=== PATIENT | male | born 1985 | race Asian ===

== ENCOUNTER 2021-12-02 07:45 | Day surgery (SDC) | payer BC ==
[2021-12-02] MEDS ORDERED: Ringers Lactate 1,000 ML IV ONE (07:51)
--- NOTE | 2021-12-02 09:13 | ENDO RPT ---
[address], [address] COLONOSCOPY PROCEDURE REPORT EXAM DATE: 12/02/2021 PATIENT NAME: Charles Villanueva MR #: [id number] BIRTHDATE: 1985 ATTENDING: Korey Baumann DR STATUS: outpatient GRAPHIC ART TECHNICIAN: Madelin Mancilla and Shivani Rodriguez RN INDICATIONS: The patient is a 36 yr old Male here for a colonoscopy due to history of colitis with pericolonic abscess PROCEDURE PERFORMED: Colonoscopy with biopsy MEDICATIONS: Per Anesthesia. ESTIMATED BLOOD LOSS: None CONSENT: The patient understands the risks and benefits of the procedure and understands that these risks include, but are not limited to: sedation, allergic reaction, infection, perforation and/or bleeding. Alternative means of evaluation and treatment include, among others: physical exam, x-rays, and/or surgical intervention. The patient elects to proceed with this endoscopic procedure. DESCRIPTION OF PROCEDURE: During intra-op preparation period all mechanical medical equipment was checked for proper function. Hand hygiene and appropriate measures for infection prevention was taken. Procedure, possible complications, alternatives including, but not limited to possibility of bleeding, perforation, tear, infection, sepsis, need for surgery, need for blood transfusion, were explained to the patient. After the risks, benefits and alternatives of the procedure were thoroughly explained, Informed consent was verified, confirmed and timeout was successfully executed by the treatment team. The patient was placed in the left lateral position. A digital rectal exam was performed and revealed internal hemorrhoids. After appropriate level of anesthesia, the scope was passed. The EC-[id number] ([id number]) endoscope was introduced through the anus and advanced to the ileum. The quality of the prep was fair. The instrument was then slowly withdrawn as the colon was fully examined. Scope withdrawal time was 12 minutes. COLON FINDINGS: Multiple small smooth and polypoid shaped semi-pedunculated polyps, ranging between 3-5mm in size, were found in the distal ileum. A polypectomy was performed with cold forceps. The resection was complete, the polyp tissue was completely retrieved and sent to histology. Was found petechiae and in the sigmoid colon. A biopsy of the lesion was performed using cold forceps. Small internal hemorrhoids were found. Single diverticulum was noted at the cecum. No bleeding was noted from the diverticulosis. . The scope was then completely withdrawn from the patient and the procedure terminated. ADVERSE EVENTS: There were no complications. IMPRESSIONS: 1. Multiple small semi-pedunculated polyps, ranging between 3-5mm in size, were found in the distal ileum; polypectomy was performed with cold forceps 2. Petechiae and in the sigmoid colon; biopsy of the lesion was performed using cold forceps 3. Small internal hemorrhoids 4. Mild diverticulosis was noted at the cecum , No Diverticulosis noted on LEFT colon / Sigmoid RECOMMENDATIONS: 1. avoid NSAIDS for 2 weeks 2. await biopsy results 3. fiber rich diet 4. follow-up: office 2 week(s) 5. Monitor for any evidence of rectal bleeding. 6. hemorrhoidal hygiene RECALL: for Colonoscopy, pending biopsy results. Korey Baumann DR eSigned: Korey Baumann DR 12/02/2021 9:13 AM cc: CPT CODES: ICD9 CODES: PATIENT NAME: Charles Villanueva MR#: [id number]
[2021-12-02] MEDS ORDERED: propofoL 200 MG/20 ML VIAL IV ONE (09:16)
[2021-12-02] MEDS ORDERED: LIDOCAINE 1% MPF 5 ML VIAL ONE (09:16)
[2021-12-02 11:45] VITALS: TEMP 97; O2SAT 100
[2021-12-02 11:47] VITALS: BP 105/61
== END 2021-12-02 09:40 | disposition home or self-care (01) ==
LOC: OR 07:45
PROVIDERS: ATTEND Surgery
PROC: 0DBB8ZX Excision of Ileum, Via Natural or Artificial Opening Endoscopic, Diagnostic (ICD-10-PCS; 2021-12-02)
PROC: 0DBN8ZX Excision of Sigmoid Colon, Via Natural or Artificial Opening Endoscopic, Diagnostic (ICD-10-PCS; principal; 2021-12-02 09:15)
DX: K57.20 Diverticulitis of large intestine with perforation and abscess without bleeding (principal); K64.8 Other hemorrhoids; K63.5 Polyp of colon; Z20.822 Contact with and (suspected) exposure to COVID-19
CPT/HCPCS: 88305; J2704; J7120; U0003

== ENCOUNTER 2022-11-27 08:28 | Inpatient (IN) | payer BC ==
[2022-11-26 15:38] LABS: Absolute Lymphocytes (CBC) 2.9 K/uL (0.7-4.9); Lymphocytes % 31.2 % (15.3-44.8); MCV 89.1 fL (80-100); MPV 8.1 fL (7.6-11.3); RBC Red Blood Cell Count 5.17 M/uL (4.33-5.43)
[2022-11-27] MEDS ORDERED: Ringers Lactate 1,000 ML IV ONE ×4 (08:36→17:26)
[2022-11-27] MEDS ORDERED: CEFAZOLIN SODIUM 2 GM/VIAL ONE (08:36)
[2022-11-27] MEDS ORDERED: BUPIVACAINE 0.25% PF 30 ML VIAL ONE ×2 (09:09→09:54)
[2022-11-27] MEDS ORDERED: VECURONIUM 10 MG/VIAL IV ONE ×2 (09:27→09:28)
[2022-11-27] MEDS ORDERED: ROCURONIUM 50 MG/5 ML VIAL IV ONE (09:39)
[2022-11-27] MEDS ORDERED: FENTANYL CITR 100 MCG/2 ML ONE ×3 (09:39→16:21)
[2022-11-27] MEDS ORDERED: dexAMETHasone 10 MG/ML VIAL ONE ×2 (09:39→09:53)
[2022-11-27] MEDS ORDERED: propofoL 200 MG/20 ML VIAL IV ONE (09:39)
[2022-11-27] MEDS ORDERED: KETAMINE HCL 500 MG/5 ML VIAL ONE (09:39)
[2022-11-27] MEDS ORDERED: MIDAZOLAM HCL 2 MG/2 ML INJ ONE (09:39)
[2022-11-27] MEDS ORDERED: LIDOCAINE 2% MPF 5 ML VIAL ONE (09:39)
[2022-11-27] MEDS ORDERED: ONDANSETRON 4 MG/2 ML VIAL ONE (09:39)
[2022-11-27] MEDS ORDERED: KETOROLAC 30 MG/ML INJ ONE (09:39)
[2022-11-27] MEDS ORDERED: EPINEPHRINE/PF 1 MG/ML AMP ONE (09:53)
[2022-11-27] MEDS ORDERED: NS 0.9% VIAL 10 ML ONE ×3 (11:03→13:32)
[2022-11-27] MEDS ORDERED: GLYCOPYRROLATE 0.2 MG/ML SYR ONE ×2 (11:16→16:27)
[2022-11-27] MEDS ORDERED: CEFAZOLIN SODIUM 1 GM/VIAL ONE (15:10)
[2022-11-27] MEDS ORDERED: NS 0.9% VIAL 20 ML ONE (15:10)
[2022-11-27] MEDS ORDERED: NEOSTIGMINE 1 MG/ML -5 ML ONE (16:27)
--- NOTE | 2022-11-27 16:31 | P.OP ---
[employer] Sales Representative: Caitlin Coulter Preoperative diagnosis: History of Sigmoid Diverticuliits with Abscesses Postoperative diagnosis: History of Sigmoid Diverticuliits with Abscesses Primary procedure: Laparoscopic Sigmoid Colectomy with primary colorectal anastamosis Anesthesia: GETA + Local Estimated blood loss: 250cc Specimen: Sigmoid Colon, EEA stapler donuts (both intact) Findings: Severe adhesions, wood like texture to Sigmoid colon Complications: None Transferred to: ICU Condition: Good
[2022-11-27] MEDS ORDERED: HYDROMORPHONE HCL 1 MG/ML INJ IV PRN (16:55)
[2022-11-27] MEDS ORDERED: ONDANSETRON 4 MG/2 ML VIAL IV PRN (16:55)
[2022-11-27] MEDS ORDERED: NALOXONE 0.4 MG/ML VIAL IV PRN (16:55)
[2022-11-27] MEDS ORDERED: HYDROMORPHONE HCL 1 MG/ML INJ ONE (17:16)
--- NOTE | 2022-11-27 17:21 | RAD REPORT ---
EXAM DESCRIPTION: RAD - Abdomen 1 View (KUB) - 11/27/2022 5:17 pm CLINICAL HISTORY: Placement of NGT/OGT. Post Insertion. Pain COMPARISON: No comparisons FINDINGS: Enteric tube tip is in the stomach.
--- OUTSIDE RECORDS SUMMARY | 2022-11-27 17:45 | XMS REPORT | Continuity of Care Document ---
:1985 Author Organization [facility] t Address [address] [place] [address] Care Team Providers Name Role Phone Ivon Jin Primary Care Physician Unavailable OTTO CONTRERAS I. Attending Clinician Unavailable BRAYDON LIGHT Attending Clinician Unavailable Braydon Light MD Attending Clinician Richard Maldonado MD Attending Clinician Abilio Dumont MD Attending Clinician [phone] Muriel Attending Clinician Unavailable EVITA GONZALEZ Attending Clinician Unavailable NADEGE HARRINGTON Attending Clinician Unavailable JESSICA VALLADARES Attending Clinician Unavailable Baldev Fraser MD Attending Clinician Jessica Valladares MD Attending Clinician JULIO C BENNETT Attending Clinician Unavailable Trudi Ramires MD Attending Clinician Mali Gregorio MD Attending Clinician AMBREEN_FARHANA Attending Clinician Unavailable DARCIE HENSLEY Attending Clinician Unavailable EDDIE NOYOLA-Abraham Attending Clinician Unavailable IVON JIN Attending Clinician Unavailable MABLE WILLARD Attending Clinician Unavailable CAROLYNN VALDEZ Attending Clinician Unavailable OTTO CONTRERAS I. Admitting Clinician Unavailable BRAYDON LIGHT Admitting Clinician Unavailable Muriel Admitting Clinician Unavailable EVITA GONZALEZ Admitting Clinician Unavailable BALDEV FRASER Admitting Clinician Unavailable JULIO C BENNETT Admitting Clinician Unavailable MATTHEW Admitting Clinician Unavailable Payers Payer Name Policy Type Policy Number Effective Date Expiration Date S kojo BCBS ADV HMO [id number] 2020 EXCHANGE 00:00:00 [id number] 2016 2017 ADVANTAGE (HMO) 00:00:00 00:00:00 Problems Condition Condition Condition Status Onset Resolution Last Treating Co mments Source Name Details Category Date Date Treatment Clinician Date Diverticul Diverticul Disease Active 2021-[address] [facility] 00 [facility] Abdominal Abdominal Disease Active 2021-[address] [facility] [address] pain pain 1-16 [facility] 00 [facility] Phlegmon Phlegmon Disease [facility] 00 [facility] Phimosis Phimosis Disease Active 2019-10 [facility] Allergies, Adverse Reactions, Alerts Allergy Allergy Status Severity Reaction(s) Onset Inactive Treating Comm ents Source Name Type Date Date Clinician NO KNOWN Allergy Active [facility] Family History Family Member Diagnosis Comments Start Date Stop Date Source Family member Inflammatory bowel [facility] Social History Social Habit Start Date Stop Date Quantity Comments Source History [facility] Transport [facility] Center Exposure to 2022-11-04 2022-11-14 Not sure [facility] SARS-CoV-2 (event) 00:00:00 12:43:00 Medica l Center Alcohol intake 2022-11-14 2022-11-14 [facility] Center History SDOH 2022-09-10 2022-09-[address] [facility] Transport Med 00:00:00 00:00:[address] [facility] 2022-09-10 2022-09-[address] [facility] Housing Unable to 00:00:00 00:00:00 Medical Center Pay History [facility] 2022-09-10 2022-09-[address] [facility] Housing Places 00:00:00 00:00:00 Medical Ce nter Lived History [facility] 2022-09-10 2022-09-[address] [facility] Housing Homeless 00:00:00 00:00:00 Medical Center Last Year Cigarettes smoked 2020-07-25 2020-07-[address] [facility] current (pack per 00:00:00 00:00:00 Medical Center day) - Reported Cigarette 2020-07-25 2020-07-[address] [facility] pack-years 00:00:00 00:00:00 [facility] Tobacco use and 2020-07-25 2020-07-[address] [facility] exposure 00:00:00 00:00:00 [facility] Sex Assigned At [birth year] [facility] [address] [facility] 00:00:00 00:00:00 [facility] Smoking Status Start Date Stop Date Source Current every day smoker 2020-07-25 00:00:00 [facility] Medications Ordered Filled Start Stop Current Ordering Indication Dosage Frequency Signature Comments Components Source Medication Medication Date Date Medication? Clinician (SIG) Name Name cholecalcif Yes [id number] Q7D Take [facility], 1-20 50,000 [facility] vitamin D3, 15:10: Units by [place] (VITAMIN D3 14 mouth once Ce nter ORAL) a week . citalopram Yes 40mg QD Take [address] (CELEXA) 20 1-20 by mouth Luke s MG tablet 15:10: daily . Medic al 14 Center lipase/prot Yes Q.25D Take by [facility] ease/amylas 1-20 mouth 4 [facility] e (ZENPEP 15:10: (four) Medica l ORAL) 14 times Center daily . pantoprazol Yes 40mg QD Take [address] [facility] 1-20 by mouth [facility] (PROTONIX) 15:10: daily. Medic al 40 MG 14 Center tablet famotidine Yes 40mg QD Take [address] (PEPCID) 40 1-20 by mouth Luke s MG tablet 15:10: daily. Medica l 14 Center metroNIDAZO 2021-10- No 500mg [id number] Take [address] [facility] (FLAGYL) 1-19 11-18 [id number] mg by [facility] 500 MG 14:50: 00:00 3D mouth 3 Medical tablet 02 :00 (three) Center times daily. levoFLOXaci 2021-10 No 500mg QD Take [address] n -19 11-18 mg by [facility] (LEVAQUIN) 14:50: 00:00 mouth Medic al 500 MG 02 :00 daily. Center tablet metroNIDAZO 2021-10 No 500mg Q.[id number] Take [address] [facility] (FLAGYL) - 11-18 [id number] mg by [facility] 500 MG 14:50: 00:00 3D mouth 3 Medical tablet 02 :00 (three) Center times daily. levoFLOXaci 2021-10 No 500mg QD Take [address] n -19 11-18 mg by [facility] (LEVAQUIN) 14:50: 00:00 mouth Medic al 500 MG 02 :00 daily. Center tablet metroNIDAZO 2021-10 No 500mg Q.[id number] Take [address] [facility] (FLAGYL) - 11-18 [id number] mg by [facility] 500 MG 14:50: 00:00 3D mouth 3 Medical tablet 02 :00 (three) Center times daily. levoFLOXaci 2021-10 No 500mg QD Take [address] n 1-19 11-18 mg by [facility] (LEVAQUIN) 14:50: 00:00 mouth Medic al 500 MG 02 :00 daily. Center tablet metroNIDAZO 2021-10 No 500mg Q.[id number] Take [address] [facility] (FLAGYL) 1-19 11-18 [id number] mg by [facility] 500 MG 14:50: 00:00 3D mouth 3 Medical tablet 02 :00 (three) Center times daily. levoFLOXaci 2021-10- No 500mg QD Take [address] n 1-19 11-18 mg by [facility] (LEVAQUIN) 14:50: 00:00 mouth Medic al 500 MG 02 :00 daily. Center tablet cholecalcif 2021-10 Yes [id number] Q7D Take [facility], 1-18 50,000 [facility] vitamin D3, 14:50: Units by Me dical (VITAMIN D3 58 mouth once Ce nter ORAL) a week . citalopram 2021-10 Yes 40mg QD Take [address] (CELEXA) 20 1-18 by mouth Luke s MG tablet 14:50: daily . Medic al 58 Center lipase/prot 2021-10 Yes Take by [facility] ease/amylas 1-18 mouth. [facility] e (ZENPEP 14:50: Medical ORAL) 58 Center pantoprazol 2021-10 Yes 40mg QD Take [address] [facility] 1-18 by mouth [facility] (PROTONIX) 14:50: daily. Medic al 40 MG 58 Center tablet famotidine 2021-10 Yes 40mg QD Take [address] (PEPCID) 40 1-18 by mouth Luke s MG tablet 14:50: daily. Medica l 58 [facility] cholecalcif 2021-10 Yes [id number] Q7D Take [facility], 1-18 50,000 [facility] vitamin D3, 14:50: Units by [place] (VITAMIN D3 58 mouth once Ce nter ORAL) a week . citalopram 2021-10 Yes 40mg QD Take [address] (CELEXA) 20 1-18 by mouth Luke s MG tablet 14:50: daily . Medic al 58 Center lipase/prot 2021-10 Yes Take by [facility] ease/amylas 1-18 mouth. [facility] e (ZENPEP 14:50: Medical ORAL) 58 Center pantoprazol 2021-10 Yes 40mg QD Take [address] [facility] 1-18 by mouth [facility] (PROTONIX) 14:50: daily. Medic al 40 MG 58 Center tablet famotidine 2021-10 Yes 40mg QD Take [address] (PEPCID) 40 1-18 by mouth Luke s MG tablet 14:50: daily. Medica l 58 Center cholecalcif 2021-10 Yes [id number] Q7D Take [facility], 1-18 50,000 [facility] vitamin D3, 14:50: Units by [place] (VITAMIN D3 58 mouth once Ce nter ORAL) a week . citalopram 2021-10 Yes 40mg QD Take [address] (CELEXA) 20 11-12 by mouth Luke s MG tablet 14:50: daily . Medic al 58 Center lipase/prot 2021-10 Yes Take by [facility] ease/amylas 18 mouth. [facility] e (ZENPEP 14:50: Medical ORAL) 58 Center pantoprazol 2021-10 Yes 40mg QD Take [address] [facility] 18 by mouth [facility] (PROTONIX) 14:50: daily. Medic al 40 MG 58 Center tablet famotidine 2021-10 Yes 40mg QD Take [address] (PEPCID) 40 11-12 by mouth Luke s MG tablet 14:50: daily. Medica l 58 Center metroNIDAZO 2021-10- No 500mg Take [address] [facility] (FLAGYL) 11-12 tablet [facility] 500 MG 00:00: 23:59 (500 mg Medical tablet 00 :00 total) by Center mouth every 8 (eight) hours for 14 days. cefdinir 2021-10- No 300mg Take 1 [facility] (OMNICEF) 11-12 capsule [facility] 300 MG 00:00: 23:59 (300 mg Medical capsule 00 :00 total) by Center mouth every 12 (twelve) hours for 14 days. metroNIDAZO 2021-10- No 500mg Take [address] [facility] (FLAGYL) 11-12 tablet [facility] 500 MG 00:00: 23:59 (500 mg Medical tablet 00 :00 total) by Center mouth every 8 (eight) hours for 14 days. cefdinir 2021-10- No 300mg Take 1 [facility] (OMNICEF) 11-12 capsule [facility] 300 MG 00:00: 23:59 (300 mg Medical capsule 00 :00 total) by Center mouth every 12 (twelve) hours for 14 days. metroNIDAZO 2021-10- No 500mg Take [address] [facility] (FLAGYL) 11-12 tablet [facility] 500 MG 00:00: 23:59 (500 mg Medical tablet 00 :00 total) by Center mouth every 8 (eight) hours for 14 days. cefdinir 2021-10- No 300mg Take 1 [facility] (OMNICEF) 11-12 capsule [facility] 300 MG 00:00: 23:59 (300 mg Medical capsule 00 :00 total) by Center mouth every 12 (twelve) hours for 14 days. cefdinir 2021-10- No 300mg Take 1 [facility] (OMNICEF) 11-12 capsule [facility] 300 MG 00:00: 23:59 (300 mg Medical capsule 00 :00 total) by Center mouth every 12 (twelve) hours for 14 days. metroNIDAZO 2021-10- No 500mg Take [address] [facility] (FLAGYL) 11-12 tablet [facility] 500 MG 00:00: 23:59 (500 mg Medical tablet 00 :00 total) by Center mouth every 8 (eight) hours for 14 days. acetaminoph 2021-10- No 1{tbl} Take [address] en-codeine 11-12 tablet by [place] (TYLENOL 00:00: 23:59 mouth Medical #3) 300-30 00 :00 every 12 Cente r mg per (twelve) tablet hours as needed for Pain for up to 10 days. Max Daily Amount: 2 tablets acetaminoph 2021-10- No 1{tbl} Take [address] en-codeine -09-22 tablet by [place] (TYLENOL 00:00: 23:59 mouth Medical #3) 300-30 00 :00 every 12 Cente r mg per (twelve) tablet hours as needed for Pain for up to 10 days. Max Daily Amount: 2 tablets acetaminoph 2021-10- No 1{tbl} Take [address] en-codeine -18 - tablet by [place] (TYLENOL 00:00: 23:59 mouth Medical #3) 300-30 00 :00 every 12 Cente r mg per (twelve) tablet hours as needed for Pain for up to 10 days. Max Daily Amount: 2 tablets acetaminoph 2021-10- No 1{tbl} Take [address] en-codeine -18 - tablet by [place] (TYLENOL 00:00: 23:59 mouth Medical #3) 300-30 00 :00 every 12 Cente r mg per (twelve) tablet hours as needed for Pain for up to 10 days. Max Daily Amount: 2 tablets lipase/prot 2021-10 Yes Take by [facility] ease/amylas 0-28 mouth. [facility] e (ZENPEP 16:19: Medical ORAL) 04 [facility] pantoprazol 2021-10 Yes 40mg QD Take [address] [facility] 0-28 by mouth [facility] (PROTONIX) 16:19: daily. Medic al 40 MG 04 Center tablet famotidine 2021-10 Yes 40mg QD Take [address] (PEPCID) 40 0-28 by mouth Luke s MG tablet 16:19: daily. Medica l 04 Center lipase/prot 2021-10 Yes Take by [facility] ease/amylas 0-28 mouth. [facility] e (ZENPEP 16:19: Medical ORAL) 04 [facility] pantoprazol 2021-10 Yes 40mg QD Take [address] [facility] 0-28 by mouth [facility] (PROTONIX) 16:19: daily. Medic al 40 MG 04 Center tablet famotidine 2021-10 Yes 40mg QD Take [address] (PEPCID) 40 0-28 by mouth Luke s MG tablet 16:19: daily. Medica l 04 Center lipase/prot 2021-10 Yes Take by [facility] ease/amylas 0-28 mouth. [facility] e (ZENPEP 16:19: Medical ORAL) 04 [facility] pantoprazol 2021-10 Yes 40mg QD Take [address] [facility] 0-28 by mouth [facility] (PROTONIX) 16:19: daily. Medic al 40 MG 04 Center tablet famotidine 2021-10 Yes 40mg QD Take [address] (PEPCID) 40 0-28 by mouth Luke s MG tablet 16:19: daily. Medica l 04 Center lipase/prot 2021-10 Yes Take by [facility] ease/amylas 0-28 mouth. [facility] e (ZENPEP 16:19: Medical ORAL) 04 Center pantoprazol 2021-10 Yes 40mg QD Take [address] [facility] 0-28 by mouth [facility] (PROTONIX) 16:19: daily. Medic al 40 MG 04 Center tablet famotidine 2022-1 Yes 40mg QD Take [address] (PEPCID) 40 0-28 by mouth Luke s MG tablet 16:19: daily. Medica l 04 [facility] cholecalcif 2021-10 Yes [id number] Q7D Take [facility], 0-27 50,000 [facility] vitamin D3, 16:22: Units by Me dical (VITAMIN D3 59 mouth once Ce nter ORAL) a week . citalopram 2021-10 Yes 40mg QD Take [address] (CELEXA) 20 0-27 by mouth Luke s MG tablet 16:22: daily . [facility] al 59 [facility] cholecalcif 2021-10 Yes [id number] Q7D Take [facility], 0-27 50,000 [facility] vitamin D3, 16:22: Units by Me dical (VITAMIN D3 59 mouth once Ce nter ORAL) a week . citalopram 2021-10 Yes 40mg QD Take [address] (CELEXA) 20 0-27 by mouth Luke s MG tablet 16:22: daily . [facility] al 59 [facility] cholecalcif 2021-10 Yes [id number] Q7D Take [facility], 0-27 50,000 [facility] vitamin D3, 16:22: Units by Me dical (VITAMIN D3 59 mouth once Ce nter ORAL) a week . citalopram 2021-10 Yes 40mg QD Take [address] (CELEXA) 20 0-27 by mouth Luke s MG tablet 16:22: daily . [facility] al 59 [facility] cholecalcif 2021-10 Yes [id number] Q7D Take [facility], 0-27 50,000 [facility] vitamin D3, 16:22: Units by Me dical (VITAMIN D3 59 mouth once Ce nter ORAL) a week . citalopram 2021-10 Yes 40mg QD Take [address] (CELEXA) 20 0-27 by mouth Luke s MG tablet 16:22: daily . [facility] al 59 [facility] topiramate 2021-10- No 15mg QD Take [address] (TOPAMAX) 0-27 10-27 by mouth [facility] 15 MG 11:32: 00:00 daily . Medical capsule 37 :00 [facility] topiramate 2021-10- No 15mg QD Take [address] (TOPAMAX) 0-27 10-27 by mouth [facility] 15 MG 11:32: 00:00 daily . Medical capsule 37 :00 [facility] topiramate 2021-10- No 15mg QD Take [address] (TOPAMAX) 0-27 10-27 by mouth [facility] 15 MG 11:32: 00:00 daily . Medical capsule 37 :00 [facility] topiramate 2021-10- No 15mg QD Take [address] (TOPAMAX) 0-27 10-27 by mouth [facility] 15 MG 11:32: 00:00 daily . Medical capsule 37 :00 [facility] topiramate 2021-10- No 15mg QD Take [address] (TOPAMAX) 0-27 10-27 by mouth [facility] 15 MG 11:32: 00:00 daily . Medical capsule 37 :00 [facility] topiramate 2021-10- No 15mg QD Take [address] (TOPAMAX) 0-27 10-27 by mouth [facility] 15 MG 11:32: 00:00 daily . Medical capsule 37 :00 [facility] topiramate 2021-10- No 15mg QD Take [address] (TOPAMAX) 0-27 10-27 by mouth [facility] 15 MG 11:32: 00:00 daily . Medical capsule 37 :00 [facility] topiramate 2021-10- No 15mg QD Take [address] (TOPAMAX) 0-27 10-27 by mouth [facility] 15 MG 11:32: 00:00 daily . Medical capsule 37 :00 [facility] Vital Signs Vital Name Observation Time Observation Value Comments Source HEIGHT 2020-07-20 00:00:00 182.9 cm WEIGHT 2020-07-20 00:00:00 123.787 kg HEIGHT 2022-11-14 12:25:00 182.9 cm WEIGHT 2022-11-14 12:25:00 82.509 kg HEIGHT 2022-11-13 08:55:00 182.9 cm WEIGHT 2022-11-13 08:55:00 85.73 kg HEIGHT 2022-11-14 12:25:00 182.9 cm WEIGHT 2022-11-14 12:25:00 82.509 kg HEIGHT 2022-11-13 08:55:00 182.9 cm WEIGHT 2022-11-13 08:55:00 85.73 kg WEIGHT 2022-09-12 06:47:00 85.775 kg WEIGHT 2022-09-09 23:26:00 86.773 kg HEIGHT 2022-09-09 23:26:00 182.9 cm WEIGHT 2022-09-12 06:47:00 85.775 kg WEIGHT 2022-09-09 23:26:00 86.773 kg HEIGHT 2022-09-09 23:26:00 182.9 cm WEIGHT 2022-09-12 06:47:00 85.775 kg WEIGHT 2022-09-09 23:26:00 86.773 kg HEIGHT 2022-09-09 23:26:00 182.9 cm HEIGHT 2022-08-21 11:20:00 182.9 cm WEIGHT 2022-08-21 11:20:00 83.6 kg HEIGHT 2022-08-20 13:11:00 182.9 cm WEIGHT 2022-08-20 13:11:00 86.183 kg HEIGHT 2022-08-21 11:20:00 182.9 cm WEIGHT 2022-08-21 11:20:00 83.6 kg HEIGHT 2022-08-20 13:11:00 182.9 cm WEIGHT 2022-08-20 13:11:00 86.183 kg HEIGHT 2022-08-21 11:20:00 182.9 cm WEIGHT 2022-08-21 11:20:00 83.6 kg HEIGHT 2022-08-20 13:11:00 182.9 cm WEIGHT 2022-08-20 13:11:00 86.183 kg HEIGHT 2020-07-20 00:00:00 182.9 cm WEIGHT 2020-07-20 00:00:00 123.787 kg Systolic blood 2022-11-14 15:00:00 129 mm[Hg] [facility] Diastolic blood 2022-11-14 15:00:00 86 mm[Hg] [facility] Heart rate 2022-11-14 15:00:00 52 /min [facility] Respiratory rate 2022-11-14 15:00:00 23 /min [facility] Oxygen saturation in 2022-11-14 15:00:00 100 /min [facility] Arterial blood by Medical Ce nter Pulse oximetry Body temperature 2022-11-14 13:37:00 36.17 Judie [facility] Body height 2022-11-14 12:25:00 182.9 cm [facility] Body weight 2022-11-14 12:25:00 82.509 kg [facility] BMI 2022-11-14 12:25:00 24.67 kg/m2 [facility] Systolic blood 2022-09-12 11:48:00 121 mm[Hg] [facility] Diastolic blood 2022-09-12 11:48:00 73 mm[Hg] [facility] Heart rate 2022-09-12 11:48:00 55 /min [facility] Body temperature 2022-09-12 11:48:00 36.5 Judie [facility] Respiratory rate 2022-09-12 11:48:00 19 /min [facility] Oxygen saturation in 2022-09-12 11:48:00 98 /min [facility] Arterial blood by Medical Ce nter Pulse oximetry Body weight 2022-09-12 06:47:00 85.775 kg [facility] BMI 2022-09-12 06:47:00 25.65 kg/m2 [facility] Body height 2022-09-09 23:26:00 182.9 cm [facility] Systolic blood 2022-08-21 16:02:00 140 mm[Hg] [facility] Diastolic blood 2022-08-21 16:02:00 90 mm[Hg] [facility] Heart rate 2022-08-21 16:02:00 52 /min [facility] Body temperature 2022-08-21 16:02:00 36.56 Judie [facility] Respiratory rate 2022-08-21 16:02:00 18 /min [facility] Oxygen saturation in 2022-08-21 16:02:00 99 /min [facility] Arterial blood by Medical Ce nter Pulse oximetry Body height 2022-08-21 11:20:00 182.9 cm [facility] Body weight 2022-08-21 11:20:00 83.6 kg [facility] BMI 2022-08-21 11:20:00 25.00 kg/m2 [facility] Procedures Procedure Date / Time Performed Performing Clinician [facility] e REPORT OF PROCEDURE - 2022-11-14 13:37:54 Braydon Light [facility] ENDOSCOPY [facility] COLONOSCOPY 2022-11-14 13:15:00 Braydon Light [facility] MAGNESIUM 2022-09-12 05:16:00 [facility] CBC W/PLT COUNT & AUTO 2022-09-12 05:16:00 [facility] COMPREHENSIVE METABOLIC 2022-09-12 05:16:00 Jsesica Valladares [facility] CBC W/PLT COUNT & AUTO 2022-09-12 05:16:00 [facility] TSH/FREE T4 IF INDICATED 2022-09-11 13:54:00 Jessica Valladares [facility] T4, FREE 2022-09-11 13:54:[address] [facility] ECG 12-LEAD 2022-09-11 11:09:10 Unknown, [facility] ECG 12-LEAD 2022-09-11 11:09:10 Unknown, [facility] ECG 12-LEAD 2022-09-11 11:08:31 Yen Patricia [facility] ECG 12-LEAD 2022-09-11 11:08:31 Unknown, [facility] ECG 12-LEAD 2022-09-11 11:08:31 Unknown, [facility] MAGNESIUM 2022-09-11 04:56:00 [facility] CBC W/PLT COUNT & AUTO 2022-09-11 04:56:00 [facility] COMPREHENSIVE METABOLIC 2022-09-11 04:56:00 Jessica Valladares [facility] PROTHROMBIN TIME/INR 2022-09-11 04:56:00 Jacquelyn, Yawillie Govea [facility] CBC W/PLT COUNT & AUTO 2022-09-11 04:56:00 [facility] POCT-GLUCOSE METER 2022-09-11 01:15:00 [facility] 2022-09-11 00:43[facility]00 [facility]ABOLIC PANEL 2022-09-10 05:06:00 [facility] MAGNESIUM 2022-09-10 05:06:00 [facility] CBC W/PLT COUNT & AUTO 2022-09-10 05:06:00 [facility] HEPATIC FUNCTION PANEL 2022-09-10 05:06:00 [facility] CBC W/PLT COUNT & AUTO 2022-09-10 05:06:00 [facility] REPORT OF PROCEDURE - 2022-08-21 15:13:40 Braydon Light [facility] ENDOSCOPY [facility] COLONOSCOPY 2022-08-21 14:51:00 Braydon Light [facility] Plan of Care Planned Activity Planned Date Details Comments Source Future Scheduled 2022-10-[address] [facility] Test 00:00:00 (12+) [code = [facility] DEPRESSION SCREENING (12+)] Future Scheduled 2022-06-26 INFLUENZA VACCINE (#1) [facility] 00:00:00 [code = INFLUENZA Medical Ce nter VACCINE (#1)] Future Scheduled 2022-06-26 INFLUENZA VACCINE (#1) [facility] Test 00:00:00 [code = INFLUENZA Medical Ce nter VACCINE (#1)] Future Scheduled 2022-06-26 INFLUENZA VACCINE (#1) [facility] Test 00:00:00 [code = INFLUENZA Medical Ce nter VACCINE (#1)] Future Scheduled 2022-06-26 INFLUENZA VACCINE (#1) [facility] Test 00:00:00 [code = INFLUENZA Medical Ce nter VACCINE (#1)] Future Scheduled 2022-06-26 INFLUENZA VACCINE (#1) [facility] Test 00:00:00 [code = INFLUENZA Medical Ce nter VACCINE (#1)] Future Scheduled 2022-06-26 INFLUENZA VACCINE (#1) [facility] 00:00:00 [code = INFLUENZA Medical Ce nter VACCINE (#1)] Future Scheduled 2022-06-26 INFLUENZA VACCINE (#1) [facility] 00:00:00 [code = INFLUENZA Medical Ce nter VACCINE (#1)] Future Scheduled 2022-06-26 INFLUENZA VACCINE (#1) [facility] 00:00:00 [code = INFLUENZA Medical Ce nter VACCINE (#1)] Future Scheduled 2021-10-[address] [facility] Test 00:00:00 (12+) [code = Medical Center DEPRESSION SCREENING (12+)] Future Scheduled 2021-10-[address] [facility] Test 00:00:00 (12+) [code = Medical Center DEPRESSION SCREENING (12+)] Future Scheduled 2021-10-[address] [facility] Test 00:00:00 (12+) [code = Medical Center DEPRESSION SCREENING (12+)] Future Scheduled 2021-10-[address] [facility] Test 00:00:00 (12+) [code = Medical Center DEPRESSION SCREENING (12+)] Future Scheduled 2021-10-[address] [facility] Test 00:00:00 (12+) [code = Medical Center DEPRESSION SCREENING (12+)] Future Scheduled 2021-10-[address] [facility] Test 00:00:00 (12+) [code = Medical Center DEPRESSION SCREENING (12+)] Future Scheduled 2021-10-[address] [facility] Test 00:00:00 (12+) [code = Medical Center DEPRESSION SCREENING (12+)] Future Scheduled 2021-07-[address] [facility] Test 00:00:00 [facility]ing [facility] Medical Cente r Screening (12+) [code = Tobacco Cessation Counseling and Screening (12+)] Future Scheduled 2021-07-[address] [facility] Test 00:00:00 Counseling and Medical Cente r Screening (12+) [code = Tobacco Cessation Counseling and Screening (12+)] Future Scheduled 2021-07-[address] [facility] Test 00:00:00 Counseling and Medical Cente r Screening (12+) [code = Tobacco Cessation Counseling and Screening (12+)] Future Scheduled 2021-07-[address] [facility] Test 00:00:00 Counseling and Medical Cente r Screening (12+) [code = Tobacco Cessation Counseling and Screening (12+)] Future Scheduled 2021-04-17 COVID-19 VACCINE (2 - [facility]00 Pfizer series) [code = Medic al Center COVID-19 VACCINE (2 - Pfizer series)] Future Scheduled 2021-04-17 COVID-19 VACCINE (2 - [facility] 00:00:00 Pfizer series) [code = Medic al Center COVID-19 VACCINE (2 - Pfizer series)] Future Scheduled 2021-04-17 COVID-19 VACCINE (2 - [facility] 00:00:00 Pfizer series) [code = Medic al Center COVID-19 VACCINE (2 - Pfizer series)] Future Scheduled 2021-04-17 COVID-19 VACCINE (2 - [facility] 00:00:00 Pfizer series) [code = Medic al Center COVID-19 VACCINE (2 - Pfizer series)] Future Scheduled 2021-04-17 COVID-19 VACCINE (2 - [facility] 00:00:00 Pfizer series) [code = Medic al Center COVID-19 VACCINE (2 - Pfizer series)] Future Scheduled 2021-04-17 COVID-19 VACCINE (2 - [facility] 00:00:00 Pfizer series) [code = Medic al Center COVID-19 VACCINE (2 - Pfizer series)] Future Scheduled 2021-04-17 COVID-19 VACCINE (2 - [facility] 00:00:00 Pfizer series) [code = Medic al Center COVID-19 VACCINE (2 - Pfizer series)] Future Scheduled 2021-04-17 COVID-19 VACCINE (2 - [facility] Pf[facility] series) [code [facility] COVID-[facility] VACCINE (2 - Pfizer series)] Future Scheduled [address] [facility]:00 (procedure) [code = [facility] [id number]] Future Scheduled [address] [facility] 00:00:00 (procedure) [code = [facility] [id number]] Future Scheduled [address] [facility] 00:00:00 (procedure) [code = [facility] [id number]] Future Scheduled [address] [facility] 00:00:00 (procedure) [code = [facility] [id number]] Future Scheduled [address] [facility] 00:00:00 (procedure) [code = [facility] [id number]] Future Scheduled [address] [facility] 00:00:00 (procedure) [code = [facility] [id number]] Future Scheduled [address] [facility] 00:00:00 (procedure) [code = [facility] [id number]] Future Scheduled [address] [facility] 00:00:00 (procedure) [code = [facility] [id number]] Future Scheduled 2003 DTAP/TDAP/TD VACCINES [facility] 00:00:00 (1 - Tdap) [code = Medical C enter DTAP/TDAP/TD VACCINES (1 - Tdap)] Future Scheduled 2003 DTAP/TDAP/TD VACCINES [facility] 00:00:00 (1 - Tdap) [code = Medical C enter DTAP/TDAP/TD VACCINES (1 - Tdap)] Future Scheduled 2003 DTAP/TDAP/TD VACCINES [facility] 00:00:00 (1 - Tdap) [code = Medical C enter DTAP/TDAP/TD VACCINES (1 - Tdap)] Future Scheduled 2003 DTAP/TDAP/TD VACCINES [facility] 00:00:00 (1 - Tdap) [code = Medical C enter DTAP/TDAP/TD VACCINES (1 - Tdap)] Future Scheduled 2003 DTAP/TDAP/TD VACCINES [facility] 00:00:00 (1 - Tdap) [code = Medical C enter DTAP/TDAP/TD VACCINES (1 - Tdap)] Future Scheduled 2003 DTAP/TDAP/TD VACCINES [facility] 00:00:00 (1 - Tdap) [code = Medical C enter DTAP/TDAP/TD VACCINES (1 - Tdap)] Future Scheduled 2003 DTAP/TDAP/TD VACCINES [facility] 00:00:00 (1 - Tdap) [code = Medical C enter DTAP/TDAP/TD VACCINES (1 - Tdap)] Future Scheduled 2003 DTAP/TDAP/TD VACCINES [facility] 00:00:00 (1 - Tdap) [code = Medical C enter DTAP/TDAP/TD VACCINES (1 - Tdap)] Future Scheduled 2002 HEPATITIS C [facility]CRE[facility] [code [facility]] Future Scheduled 2002 HEPATITIS C [facility]:00 [code = [facility] SCREENING] Future Scheduled 2002 HEPATITIS C [facility]:00:[facility] [code = [facility] SCREENING] Future Scheduled 2002 HEPATITIS C [facility]:00:00 [code = [facility] SCREENING] Future Scheduled 2002 HEPATITIS C [facility] 00:00:00 [code = [facility]IS [facility] SCREENING] Future Scheduled 2002 HEPATITIS C [facility]:00:00 [code = [facility] SCREENING] Future Scheduled 2002 HEPATITIS C [facility] [code = [facility] SCREENING] Future Scheduled 2002 HEPATITIS C [facility]:00:[facility] [code = [facility]IS [facility] SCREENING] Future Scheduled [address] [facility] 00:00:00 0-64 YRS (1 - PCV) Medical C enter [code = PNEUMOCOCCAL VACCINE 0-64 YRS (1 - PCV)] Future Scheduled [address] [facility] 00:00:00 0-64 YRS (1 - PCV) Medical C enter [code = PNEUMOCOCCAL VACCINE 0-64 YRS (1 - PCV)] Future Scheduled [address] [facility] 00:00:00 0-64 YRS (1 - PCV) Medical C enter [code = PNEUMOCOCCAL VACCINE 0-64 YRS (1 - PCV)] Future Scheduled [address] [facility] 00:00:00 0-64 YRS (1 - PCV) Medical C enter [code = PNEUMOCOCCAL VACCINE 0-64 YRS (1 - PCV)] Future Scheduled [address] [facility] 00:00:00 0-64 YRS (1 - PCV) Medical C enter [code = PNEUMOCOCCAL VACCINE 0-64 YRS (1 - PCV)] Future Scheduled [address] [facility] 00:00:00 0-64 YRS (1 - PCV) Medical C enter [code = PNEUMOCOCCAL VACCINE 0-64 YRS (1 - PCV)] Future Scheduled [address] [facility] 00:00:00 0-64 YRS (1 - PCV) Medical C enter [code = PNEUMOCOCCAL VACCINE 0-64 YRS (1 - PCV)] Future Scheduled [address] [facility] 00:00:00 0-64 YRS (1 - PCV) Medical C enter [code = PNEUMOCOCCAL VACCINE 0-64 YRS (1 - PCV)] Encounters Start End Encounter Admission Attending Care Care Encounter Source Date/Time Date/Time Type Type Clinicians Facility Department ID 2021-07-31 [facility] [id number] [facility] 08:21:31 OTTO 2022-11-14 2022-11-14 Outpatient [facility] Surgery [id number] [facility] 12:17:00 15:08:00 [facility] 2022-11-14 2022-11-14 [facility] [id number] 12:17:00 15:08:00 Encounter [facility] 2022-11-14 2022-11-[address] [facility] [id number] 14:00:00 15:00:00 [facility] 2022-11-14 2022-11-14 Anesthesia Richard Maldonado [facility] [id number] 13:15:00 13:39:00 Event Abilio Dumont [facility] 2022-11-14 2022-11-14 Travel [facility] [id number] [facility] 00:[facility]:00 00:00:00 [facility] 2022-11-13 2022-11-13 Outpatient EL [facility] [id number] [facility] 10:19:40 23:59:00 2022-11-13 2022-11-13 [facility] [id number] 08:40:00 23:59:00 Encounter [facility] 2022-11-13 2022-11-13 Outpatient [facility]H [facility] [id number] [facility] 00:00:00 00:00:00 2022-11-13 2022-11-13 Outpatient [facility] [id number] [facility] 00:00:00 00:00:00 2022-11-13 2022-11-13 Travel [facility] [id number] [facility] 00:[facility]00 00:00:00 [facility] 2022-10-28 2022-10-28 Outpatient [facility] [id number] [place] 00:00:00 00:00:00 [id number] 2022-09-28 2022-09-29 Inpatient ER CARLOS [facility] [id number] [place] 02:53:00 11:03:00 EVITA -[id number] [facility] 2022-09-27 2022-09-27 Emergency ER LEN [facility] [id number] [place] 22:56:00 22:56:00 NADEGE -[id number] [facility] 2022-09-09 2022-09-12 Inpatient ER JACQUELYN, SLE[facility] [id number] [facility] 23:15:00 14:50:00 [facility] 2022-09-09 2022-09-12 [facility] [id number] 23:15:00 14:50:00 Encounter Jessica Valladares [facility] 2022-09-09 2022-09-12 [facility] ER [facility] [id number] 23:15:00 14:50:00 Encounter JacquelynJessica tellez Jeferson [facility] 2022-09-11 2022-09-11 Outpatient [facility] [id number] [facility] 00:00:00 23:59:00 Jose rivera of Medicin e 2022-09-11 2022-09-11 Orders [facility] [id number] 00:00:00 00:00:00 Only [facility] 2022-09-11 2022-09-11 Orders [facility] [id number] 00:00:00 00:00:00 Only [facility] 2022-09-09 2022-09-09 Emergency ER LEN [facility] [id number] [place] 16:02:00 21:35:00 NADEGE [id number] [facility] 2022-09-09 2022-09-09 emergency [id number] 16:02:00 21:35:00 [id number] 2022-09-09 2022-09-09 Travel [facility] [id number] [facility] 00:00:00 00:00:00 [facility] 2022-09-09 2022-09-09 Travel [facility] [id number] [facility] 00:00:00 00:00:00 [facility] 2022-09-03 2022-09-06 Inpatient ER SABRINA [employer] [id number] [place] 21:24:00 11:17:00 JULIO C [id number] [facility] 2022-08-21 2022-08-21 Outpatient DANIELLE LIGHT Surgery [id number] [facility] 09:43:00 16:19:00 BRAYDON 2022-08-21 2022-08-21 [facility] Nadege [facility] [id number] 09:43:00 16:19:00 Encounter B[facility] 2022-08-212022-08-21 [facility] [id number] 09:43:00 16:19:00 Encounter [facility] 2022-08-21 2022-08-21 Anesthesia Trudi Ramires [facility] [id number] 14:51:00 15:19:00 Event Gregorio, LopezPriya [facility] 2022-08-21 2022-08-[address] [facility] [id number] 14:51:00 15:19:00 Event Mali Gregorio [facility] 2022-08-21 2022-08-21 [facility] [id number] 12:30:00 13:00:00 [facility] 2022-08-21 2022-08-21 [facility] [id number] 12:30:00 13:00:00 [facility] 2022-08-21 2022-08-21 Travel [facility] [id number] [facility] 00:00:00 00:00:00 [facility] 2022-08-21 2022-08-21 Travel [facility] [id number] [facility] 00:00:00 00:00:00 [facility] 2022-08-20 2022-08-20 Outpatient EL SLE SLE [id number] [facility] 13:19:58 23:59:00 2022-08-20 2022-08-20 [facility] [id number] 13:05:00 23:59:00 Encounter [facility] 2022-08-20 2022-08-20 [facility] [id number] 13:05:00 13:05:00 Encounter [facility] 2022-08-20 2022-08-20 Travel [facility] [id number] [facility] 00:00:00 00:00:00 [facility] 2022-08-202022-08-20 Travel [facility] [id number] [facility] 00:00:00 00:00:00 [facility] 2022-05-28 2022-05-28 Outpatient ROSIE_JORGE LUIS RAMIREZ [id number] [place] 00:00:00 00:00:00 HANA 0803 da [facility] Outre h Program 2021-10-16 2021-10-16 Outpatient DEYANIRA HENSLEY, [facility] [id number] [place] 12:47:00 12:47:00 DARCIE -[id number] [facility] 2021-09-10 2021-09-10 Outpatient DEYANIRA NOYOLA, [facility] [id number] [place] 12:37:00 12:37:00 EDDIE -[id number] [facility] 2020-09-12 2020-09-12 Outpatient [facility] MMG [id number] [place] 02:28:00 02:28:00 [facility] 2020-07-25 2020-07-25 Outpatient [facility]H SLEH [id number] [facility] 00:00:00 00:00:00 2017-01-20 2017-01-20 Outpatient DEYANIRA JIN, [facility] [id number] [place] 08:58:00 08:58:00 IVON -[id number] [facility] 2016-03-06 2016-03-06 Outpatient DEYANIRA WILLARD, [facility] [id number] [place] 07:59:00 07:59:00 RJ -[id number] [facility] 2016-02-07 2016-02-07 Emergency ER , [facility] [id number] [place] 14:16:00 15:53:00 WAS -[id number] [facility] Results Test Description Test Time Test Comments Results Result Comments Source POCT-GLUCOSE METER 2022-09-15 08:39:05 Test Item Value Reference Range Interpretation Comme nts POC-GLUCOSE METER (BEAKER) 80 mg/dL 70-110 : TESTED AT [facility] 6720 KIRSTIN (test code = 1538) SHARDA Stewart [place], [address]: Chore Tender/Techni vanda ID = [id number] for FRAN STALEY CBC W/PLT COUNT & AUTO [id number] 09:30:30 Test Item Value Reference Range Interpretation Comments WHITE BLOOD CELL COUNT (BEAKER) 5.6 K/ L 3.5-10.5 (test code = 775) RED BLOOD CELL COUNT (BEAKER) 4.14 M/ L 4.63-6.08 L (test code = 761) HEMOGLOBIN (BEAKER) (test code = 12.7 GM/DL 13.7-17.5 L 410) HEMATOCRIT (BEAKER) (test code = 37.3 % 40.1-51.0 L 411) MEAN CORPUSCULAR VOLUME (BEAKER) 90 fL 79-92 (test code = 753) MEAN CORPUSCULAR HEMOGLOBIN 30.7 pg 25.7-32.2 (BEAKER) (test code = 751) MEAN CORPUSCULAR HEMOGLOBIN CONC 34.0 GM/DL 32.3-36.5 (BEAKER) (test code = 752) RED CELL DISTRIBUTION WIDTH 12.2 % 11.6-14.4 (BEAKER) (test code = 412) PLATELET COUNT (BEAKER) (test 261 K/CU MM 150-450 code = 756) MEAN PLATELET VOLUME (BEAKER) 9.4 fL 9.4-12.4 (test code = 754) NEUTROPHILS RELATIVE PERCENT 62 % (BEAKER) (test code = 429) LYMPHOCYTES RELATIVE PERCENT 27 % (BEAKER) (test code = 430) MONOCYTES RELATIVE PERCENT 7 % (BEAKER) (test code = 431) EOSINOPHILS RELATIVE PERCENT 2 % (BEAKER) (test code = 432) BASOPHILS RELATIVE PERCENT 0 % (BEAKER) (test code = 437) NEUTROPHILS ABSOLUTE COUNT 3.50 K/ L 1.78-5.38 (BEAKER) (test code = 670) LYMPHOCYTES ABSOLUTE COUNT 1.53 K/ L 1.32-3.57 (BEAKER) (test code = 414) MONOCYTES ABSOLUTE COUNT (BEAKER) 0.38 K/ L 0.30-0.82 (test code = 415) EOSINOPHILS ABSOLUTE COUNT 0.12 K/ L 0.04-0.54 (BEAKER) (test code = 416) BASOPHILS ABSOLUTE COUNT (BEAKER) 0.01 K/ L 0.01-0.08 (test code = 417) IMMATURE GRANULOCYTES-RELATIVE 1.20 % 0.00-1.00 H PERCENT (BEAKER) (test code = 2801) [id number] 06:02:34 Test Item Value Reference Range Interpretation Comments MAGNESIUM (BEAKER) 2.1 mg/dL 1.6-2.6 Specimen moderately (test code = 627) hemolyzed Chore Tender ID - BSCOMPREHENSIVE METABOLIC [id number] 06:02:34 Test Item Value Reference Range Interpretation Comments TOTAL PROTEIN 6.7 gm/dL 6.0-8.3 Specimen moder ately (BEAKER) (test hemolyzed code = 770) ALBUMIN (BEAKER) 3.2 g/dL 3.5-5.0 L Specimen mo derately (test code = 1145) hemolyzed ALKALINE 35 U/L 40-150 L PHOSPHATASE (BEAKER) (test code = 346) BILIRUBIN TOTAL 0.5 mg/dL 0.2-1.2 Specimen mod erately (BEAKER) (test hemolyzed code = 377) SODIUM (BEAKER) 138 meq/L 136-145 (test code = 381) POTASSIUM (BEAKER) 4.1 meq/L 3.5-5.1 Specimen moderately (test code = 379) hemolyzed CHLORIDE (BEAKER) 107 meq/L 98-107 (test code = 382) CO2 (BEAKER) (test 23 meq/L 22-29 code = 355) BLOOD UREA 8 mg/dL 7-21 NITROGEN (BEAKER) (test code = 354) CREATININE 0.82 mg/dL 0.57-1.25 Specimen modera tely (BEAKER) (test hemolyzed code = 358) GLUCOSE RANDOM 88 mg/dL 70-105 (BEAKER) (test code = 652) CALCIUM (BEAKER) 8.4 mg/dL 8.4-10.2 (test code = 697) AST (SGOT) 28 U/L 5-34 Specimen modera tely (BEAKER) (test hemolyzed code = 353) ALT (SGPT) 18 U/L 6-55 Specimen modera tely (BEAKER) (test hemolyzed code = 347) EGFR (BEAKER) 117 Interpretatio n of eGFR (test code = 1092) mL/min/1.[address] age Description sq m Result G1 Rose l or high >=90 G2 Mildly decreased 60-89 G3a Mildl y to moderately 45-5 9 G3b Moderately to s everely 30-44 G4 Sever ly decreased 15-29 G5 Kidney failure <15Repo rted eGFR is based on the CKD-EPI 2020 equation t hat does not use a race coefficientEsti mated GFR is not as accur ate as Creatinine Divya isaacs in predicting glom erular filtration rate . Estimated GFR is not appl icable for dialysis patien ts Chore Tender ID - BST4, [id number] 15:57:22 Test Item Value Reference Range Interpretation Comments FREE T4 (BEAKER) (test code = 655) 1.06 ng/dL 0.70-1.48 Chore Tender ID - BSTSH/FREE T4 IF [id number] 15:05:36 Test Item Value Reference Range Interpretation Comments THYROID STIMULATING HORMONE 0.255 uIU/mL 0.350-4.940 L (BEAKER) (test code = 772) Chore Tender ID - AMMY MCBC W/PLT COUNT & AUTO [id number] 06:30:39 Test Item Value Reference Range Interpretation Comments WHITE BLOOD CELL COUNT 5.8 K/ L 3.5-10.5 (BEAKER) (test code = 775) RED BLOOD CELL COUNT 4.12 M/ L 4.63-6.08 L (BEAKER) (test code = 761) HEMOGLOBIN (BEAKER) 12.2 GM/DL 13.7-17.5 L (test code = 410) HEMATOCRIT (BEAKER) 36.1 % 40.1-51.0 L (test code = 411) MEAN CORPUSCULAR 88 fL 79-92 Discordant MCV VOLUME (BEAKER) (test result s from code = 753) previous. Clini giovanny correlation required. MEAN CORPUSCULAR 29.6 pg 25.7-32.2 HEMOGLOBIN (BEAKER) (test code = 751) MEAN CORPUSCULAR 33.8 GM/DL 32.3-36.5 HEMOGLOBIN CONC (BEAKER) (test code = 752) RED CELL DISTRIBUTION 12.4 % 11.6-14.4 WIDTH (BEAKER) (test code = 412) PLATELET COUNT 228 K/CU MM 150-450 (BEAKER) (test code = 756) MEAN PLATELET VOLUME 9.4 fL 9.4-12.4 (BEAKER) (test code = 754) NUCLEATED RED BLOOD 0 /100 WBC 0-0 CELLS (BEAKER) (test code = 413) NEUTROPHILS RELATIVE 65 % PERCENT (BEAKER) (test code = 429) LYMPHOCYTES RELATIVE 25 % PERCENT (BEAKER) (test code = 430) MONOCYTES RELATIVE 6 % PERCENT (BEAKER) (test code = 431) EOSINOPHILS RELATIVE 3 % PERCENT (BEAKER) (test code = 432) BASOPHILS RELATIVE 1 % PERCENT (BEAKER) (test code = 437) NEUTROPHILS ABSOLUTE 3.80 K/ L 1.78-5.38 COUNT (BEAKER) (test code = 670) LYMPHOCYTES ABSOLUTE 1.44 K/ L 1.32-3.57 COUNT (BEAKER) (test code = 414) MONOCYTES ABSOLUTE 0.35 K/ L 0.30-0.82 COUNT (BEAKER) (test code = 415) EOSINOPHILS ABSOLUTE 0.15 K/ L 0.04-0.54 COUNT (BEAKER) (test code = 416) BASOPHILS ABSOLUTE 0.03 K/ L 0.01-0.08 COUNT (BEAKER) (test code = 417) IMMATURE 1.00 % 0.00-1.00 GRANULOCYTES-RELATIVE PERCENT (BEAKER) (test code = 2801) COMPREHENSIVE METABOLIC [id number] 06:08:38 Test Item Value Reference Range Interpretation Comments TOTAL PROTEIN 6.5 gm/dL 6.0-8.3 (BEAKER) (test code = 770) ALBUMIN (BEAKER) 3.3 g/dL 3.5-5.0 L (test code = 1145) ALKALINE 34 U/L 40-150 L PHOSPHATASE (BEAKER) (test code = 346) BILIRUBIN TOTAL 0.7 mg/dL 0.2-1.2 (BEAKER) (test code = 377) SODIUM (BEAKER) 139 meq/L 136-145 (test code = 381) POTASSIUM (BEAKER) 3.7 meq/L 3.5-5.1 (test code = 379) CHLORIDE (BEAKER) 107 meq/L 98-107 (test code = 382) CO2 (BEAKER) (test 22 meq/L 22-29 code = 355) BLOOD UREA 9 mg/dL 7-21 NITROGEN (BEAKER) (test code = 354) CREATININE 0.76 mg/dL 0.57-1.25 (BEAKER) (test code = 358) GLUCOSE RANDOM 74 mg/dL 70-105 (BEAKER) (test code = 652) CALCIUM (BEAKER) 8.7 mg/dL 8.4-10.2 (test code = 697) AST (SGOT) 34 U/L 5-34 (BEAKER) (test code = 353) ALT (SGPT) 20 U/L 6-55 (BEAKER) (test code = 347) EGFR (BEAKER) 119 Interpretatio n of eGFR (test code = 1092) mL/min/1.[address] age Description sq m Result G1 Rose l or high >=90 G2 Mildly decreased 60-89 G3a Mildl y to moderately 45-5 9 G3b Moderately to s everely 30-44 G4 Sever ly decreased 15-29 G5 Kidney failure <15Repo rted eGFR is based on the CKD-EPI 2020 equation t hat does not use a race coefficientEsti mated GFR is not as accur ate as Creatinine Divya ferny in predicting glom erular filtration rate . Estimated GFR is not appl icable for dialysis patien ts Chore Tender ID - AMMY [id number] 06:08:38 Test Item Value Reference Range Interpretation Comments MAGNESIUM (BEAKER) (test code = 1.9 mg/dL 1.6-2.6 627) Chore Tender ID - AMMY MPROTHROMBIN [id number] 05:22:52 Test Item Value Reference Range Interpretation Comments PROTIME (BEAKER) 15.4 seconds 11.9-14.2 H (test code = 759) INR (BEAKER) (test 1.29 See_Comment [Automat ed message] code = 370) The system [employer] generated this result transmitted ref erence range: <=5.90. The reference range was not used to int erpret this result as normal/abnormal . RECOMMENDED COUMADIN/WARFARIN INR THERAPY RANGESSTANDARD DOSE: 2.0 - 3.0 Includes: PROPHYLAXIS for venous thrombosis, systemic embolization; TREATMENT for venous thrombosis and/or pulmonary embolus.HIGH RISK: Target INR is 2.5-3.5 for patients with mechanical heart valves.POC-Glucose [id number] 01:27:30 Test Item Value Reference Range Interpretation Comments POC-Glucose Meter (test 80 mg/dL 70-110 : TE STED AT [facility] code = 1538) 20 [facility], 770 30: Chore Tender/Techni vanda ID = [id number] for TI VARGHESE, MA H AZEL Lab Interpretation (test Normal code = 18665-0) [facility]-Glucose [id number] 01:27:30 Test Item Value Reference Range Interpretation Comments POC-Glucose Meter (test 80 mg/dL 70-110 : TE STED AT [facility] code = 1538) [address] [place] [address], 770 30: Chore Tender/Techni vanda ID = [id number] for TI VARGHESE, MA H AZEL Lab Interpretation (test Normal code = 83185-7) [facility]-Glucose [id number] 01:27:30 Test Item Value Reference Range Interpretation Comments POC-Glucose Meter (test 80 mg/dL 70-110 : TE STED AT [facility] code = 1538) [address] [place] [address], 770 30: Chore Tender/Techni vanda ID = [id number] for TI VARGHESE, MA H AZEL Lab Interpretation (test Normal code = 50089-4) [facility]-Glucose [id number] 01:27:30 Test Item Value Reference Range Interpretation Comments POC-Glucose Meter (test 80 mg/dL 70-110 : TE STED AT [facility] code = 1538) [address] [place] [address], 770 30: Chore Tender/Techni vanda ID = [id number] for TI VARGHESE, MA H AZEL Lab Interpretation (test Normal code = 28090-1) [facility]-GLUCOSE [id number] 01:27:30 Test Item Value Reference Range Interpretation Comments POC-GLUCOSE METER 80 mg/dL 70-110 : TESTED A T [facility] 6720 (BEAKER) (test code = ALEKSANDRA [place] [facility], 1538) [id number]: Chore Tender/Techni vanda ID = [id number] for TI VARGHESE, MA MIRA [id number] 07:29:22 Test Item Value Reference Range Interpretation Comments MAGNESIUM (BEAKER) (test code = 2.1 mg/dL 1.6-2.6 627) Chore Tender ID - AMMY MHEPATIC FUNCTION [id number] 07:29:22 Test Item Value Reference Range Interpretation Comments TOTAL PROTEIN (BEAKER) (test code = 6.5 gm/dL 6.0-8.3 770) ALBUMIN (BEAKER) (test code = 1145) 3.4 g/dL 3.5-5.0 L BILIRUBIN TOTAL (BEAKER) (test code 0.9 mg/dL 0.2-1.2 = 377) BILIRUBIN DIRECT (BEAKER) (test 0.3 mg/dL 0.1-0.5 code = 706) ALKALINE PHOSPHATASE (BEAKER) (test 36 U/L 40-150 L code = 346) AST (SGOT) (BEAKER) (test code = 20 U/L 5-34 353) ALT (SGPT) (BEAKER) (test code = 12 U/L 6-55 347) Chore Tender ID - AMMY MBASIC METABOLIC [id number] 07:29:21 Test Item Value Reference Range Interpretation Comments SODIUM (BEAKER) 142 meq/L 136-145 (test code = 381) POTASSIUM 4.1 meq/L 3.5-5.1 (BEAKER) (test code = 379) CHLORIDE (BEAKER) 107 meq/L 98-107 (test code = 382) CO2 (BEAKER) 27 meq/L 22-29 (test code = 355) BLOOD UREA 11 mg/dL 7-21 NITROGEN (BEAKER) (test code = 354) CREATININE 0.92 mg/dL 0.57-1.25 (BEAKER) (test code = 358) GLUCOSE RANDOM 85 mg/dL 70-105 (BEAKER) (test code = 652) CALCIUM (BEAKER) 9.1 mg/dL 8.4-10.2 (test code = 697) EGFR (BEAKER) 111 Interpretatio n of eGFR (test code = mL/min/1.73 values Stage De scription 1092) sq m Result G1 Rose l or high >=90 G2 Mildly decreased 60-89 G3a Mildl y to moderately 45-5 9 G3b Moderately to s everely 30-44 G4 Severl y decreased 15-29 G5 Kidne y failure <15Reported eGF R is based on the CKD-EPI 2020 equation that d oes not use a race coefficientEsti mated GFR is not as accur ate as Creatinine Divya ferny in predicting glom erular filtration rate . Estimated GFR is not appl icable for dialysis patien ts Chore Tender ID - AMMY MCBC W/PLT COUNT & AUTO [id number] 06:12:59 Test Item Value Reference Range Interpretation Comments WHITE BLOOD CELL COUNT (BEAKER) 6.7 K/ L 3.5-10.5 (test code = 775) RED BLOOD CELL COUNT (BEAKER) 4.02 M/ L 4.63-6.08 L (test code = 761) HEMOGLOBIN (BEAKER) (test code = 12.0 GM/DL 13.7-17.5 L 410) HEMATOCRIT (BEAKER) (test code = 36.8 % 40.1-51.0 L 411) MEAN CORPUSCULAR VOLUME (BEAKER) 92 fL 79-92 (test code = 753) MEAN CORPUSCULAR HEMOGLOBIN 29.9 pg 25.7-32.2 (BEAKER) (test code = 751) MEAN CORPUSCULAR HEMOGLOBIN CONC 32.6 GM/DL 32.3-36.5 (BEAKER) (test code = 752) RED CELL DISTRIBUTION WIDTH 13.0 % 11.6-14.4 (BEAKER) (test code = 412) PLATELET COUNT (BEAKER) (test 225 K/CU MM 150-450 code = 756) MEAN PLATELET VOLUME (BEAKER) 9.7 fL 9.4-12.4 (test code = 754) NUCLEATED RED BLOOD CELLS 0 /100 WBC 0-0 (BEAKER) (test code = 413) NEUTROPHILS RELATIVE PERCENT 65 % (BEAKER) (test code = 429) LYMPHOCYTES RELATIVE PERCENT 24 % (BEAKER) (test code = 430) MONOCYTES RELATIVE PERCENT 9 % (BEAKER) (test code = 431) EOSINOPHILS RELATIVE PERCENT 1 % (BEAKER) (test code = 432) BASOPHILS RELATIVE PERCENT 0 % (BEAKER) (test code = 437) NEUTROPHILS ABSOLUTE COUNT 4.36 K/ L 1.78-5.38 (BEAKER) (test code = 670) LYMPHOCYTES ABSOLUTE COUNT 1.61 K/ L 1.32-3.57 (BEAKER) (test code = 414) MONOCYTES ABSOLUTE COUNT (BEAKER) 0.59 K/ L 0.30-0.82 (test code = 415) EOSINOPHILS ABSOLUTE COUNT 0.09 K/ L 0.04-0.54 (BEAKER) (test code = 416) BASOPHILS ABSOLUTE COUNT (BEAKER) 0.02 K/ L 0.01-0.08 (test code = 417) IMMATURE GRANULOCYTES-RELATIVE 0.90 % 0.00-1.00 PERCENT (BEAKER) (test code = 2801) TISSUE [id number] 15:17:00Surgical Pathology Report Case: [id number] Authorizing Provider: Otto Contreras MD Collected: 07/26/2020 10:11 AM Ordering Location: [facility] [place] [facility] Received: 07/26/2020 11:35 AM SERVICES Pathologist: Jadyn Strange MD Specimen: Foreskin FORESKIN, CIRCUMCISION:- MILD CHRONIC INFLAMMATIONCONSISTENT WITH PHIMOSIS Signing Pathologist Direct Phone Line: [phone] signed byJadyn Strange MD on 07/31/2020 at 3:17 [id number] diagnosis: PhimosisForeskinReceived in formalin labeled with the patient's name, accession number and "foreskin" is a 6.0 x 5.0 x 0.3 cm unoriented portion of holley-brown fibromembranous, wrinkled skin. The epithelial surface displays a 3.2 cm linear, fibrous area that is abutting the nearest margin. Sectioning reveals a holley-pink, fibrous cut surface. 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 PA/pl Sections show skin with mild acanthosis. There is mild chronic inflammatory infiltrate.
[2022-11-27] MEDS: D5.45NS W/KCL 20MEQ 1,000 ML IV SCH (18:20)
--- NOTE | 2022-11-27 19:31 | OP ---
Date of Procedure: 11/27/2022 Surgeon: Korey Baumann MD, Preoperative Diagnosis: History of sigmoid diverticulitis with diverticular abscesses on multiple oc casions. Postoperative Diagnosis: History of sigmoid diverticulitis with diverticular abscesses on multiple o ccasions. Procedure Performed: Laparoscopic sigmoid colectomy with primary colorectal anastomosis. Anesthesia: General endotracheal plus local with 0.25% Marcaine. Estimated Blood Loss: Approximately 250 cc. Specimen: 1.Sigmoid colon. 2.Donuts from EEA stapler both found to be intact. Findings: 1.Severe adhesions from the sigmoid colon to the right abdominal wall and to several loops of small bowel. 2.Dundas type firm texture to the sigmoid colon. 3.Adequate length without need for IMV or NAYANA division. Complications: None. Disposition: The patient was transferred to ICU in good condition. Procedure In Detail: After informed consent was obtained, the patient was brought to the operating r oom, prepped and draped in the standard fashion. The patient was in a modified lithotomy position. After adequate anesthesia was achieved, I made a supraumbilical incision. A 5 mm 0-degree optical tr ocar was introduced in the abdomen without evidence of complication. Insufflation was obtained to 15 mmHg at this time. There was no injury to vital structures upon entering the abdomen. There was ad hesions to the anterior abdominal wall in the periumbilical region and I visualized the sigmoid colon firmly attached with a large amount of omentum entrapping it on the lateral sidewall as well as elise ral loops of small bowel also being involved in this inflammatory reaction. Additional trocars were placed at this point. I placed a 12 mm trocar in the right lower quadrant, and then, and mid lateral abdominal trocar was a 5 mm trocar, and I placed an additional 5 mm trocar in the left lower quadran t. A total of 4 trocars were used. At this point, I placed the patient in steep Trendelenburg posit ion and rotated the patient's bed to allow for mobilization and packing of the bowel and omentum. 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 I began by mobilizing the omentum off the sigmoid colon at this point to allow for mobilization and draping of the omentum over the liver, I use the LigaSure device to mobilize the omentum off the sigmoid colo n without evidence of complication. At this point, I turned my attention to mobilized the small jeanie l. However, as stated earlier, several loops of small bowel were in firm apposition to the scar tiss ue and mesentery which had a somewhat foreshortened appearance at this area. I mobilized this with a combination of sharp dissection with Endo Paulette as well as LigaSure device and blunt dissection. T here was no obvious bowel injury throughout the case. I then after mobilizing the small bowel remove d and placed it on the right side of the patient's abdomen. I then started a medial dissection begin philip near the angle of Treitz to mobilize the inferior mesenteric vein should it be necessary to sacr ifice this structure to achieve adequate length. I mobilized this area in the fascial plane under th e vein. I carried this dissection through the loose alveolar tissue heading towards the inferior bor cyril of the pancreas and towards the region of the spleen without incident or complication. No hemost atic maneuvers were required. I did not ligate the IMV at this point as the patient had somewhat red undant descending colon. I then turned my attention to the sigmoid colon region. I scored the perit oneum in a medial to lateral aspect and carried this dissection through the alveolar plane towards th e sigmoidal branches. I opted not to ligate the NAYANA at this point, as there seemed to be adequate le ngth and this was not a cancer operation and it was predominantly for sigmoid diverticulitis. I opte d to ligate the sigmoidal branches as I encounter them. I used a combination of clips placed on the proximal distal aspect as well as LigaSure device to ligate between the clips for sigmoidal branches as they occurred as well as any larger venous tributaries. No significant venous tributaries besides 1 was encountered near sigmoidal branch and this was easily controlled with minimal bleeding. At th is point, I continued the dissection from medial to lateral aspect until I had adequate mobilization of this area. I then began a lateral to medial mobilization of the sigmoid colon by initially starti ng in the area where the significant adhesions were. I used a combination of sharp, blunt, and LigaS ure dissection to mobilize this firm fixed sigmoid colon off the left lateral abdominal wall. After this was mobilized, I took down the white line of Toldt continuing it up all the way up to the spleni c flexure. I proceeded to mobilize the splenic flexure. At this point, initially starting earlier w ith the dissection noted of the inferior mesenteric vein. I then carried this laterally by taking do wn the white line and containing it around. I then opened the omentum to expose the stomach, and thr ough this plane, I dissected from medial to lateral around the splenic flexure to mobilize this. In addition, I continued to take loose alveolar tissue circumferentially around to mobilize the splenic flexure until adequate length was felt. At this point, I palpated with the instruments, the proximal aspect where the bowel appeared to be nice, soft, and pliable. I placed clips on this to demarcate the area for anastomosis. I then examined the rectum and found the upper rectum to be nice, soft, an d pliable where the fibers of the tenia splayed as well as the epiploic appendages and discontinued. I placed clips on this area to demarcate that as well at the upper rectum. At this point, I proceed ed to mobilize the colon additionally from some remaining scar tissue. After I felt it was in adequa te length, I was able to grasp the area where the clips were placed and placed it easily down in the rectum for a tension-free anastomosis to be planned. At this point, I had my licensed occupational therapy assistant placed sizers in the patient's rectum and a 29 EEA stapler was opted for at this point. I then brought in the VALORIE 65 purple load through the lateral trocar and fired across the distal rectum after mobilizing this a nd skeletonizing the structures to allow for good application of the stapler. Two stapler fires were required to get all the way across. The second load was a 45 Endo VALORIE purple load. At this point, I ensured the anastomosis would be able to be performed with a tension-free manner and the vascular p edicle appeared to be good and intact as the bowel was well perfused all the way through the procedur e. I did not have to sacrifice the NAYANA and IMV as described earlier, only sigmoidal branches were ta jake and other small venous tributaries. At this point, I then opted to exteriorize the bowel for pre paration of the anastomosis. I then extended my left lower quadrant incision in a lateral fashion to allow for placement of a wound protector/GelPort. At this point, the bowel was exteriorized and bro ught out and delivered after dissecting down through the skin with 10 blade, the fat plane with elect rocautery. I dissected free the muscle fibers and spread them and opened the fascial plane with elec trocautery and opened the peritoneum with cautery under vision using laparoscopic guidance. At this point, as stated, the wound protector was placed. I then delivered the bowel out and planned for the resection of this segment. I then applied the pursestring device across the nice soft pliable bowel and fired at this point, and I resected the bowel in a linear fashion using a 10 blade. I then note d that the stapler device, even though being completely deployed and fully compressed, did not proper ly apply the pursestring suture, as such I removed the pursestring sutured at this point and proceede d to perform manual pursestring placement with a 3-0 PDS suture in a pursestring type orientation. I then cleansed the bowel wall with an electrocautery removing any adipose tissue from this to allow f or adequate firing of the stapler. The anvil was then placed and the pursestring device secured at t his point. No additional adipose tissue was required to be removed at this point, as a nice flat spo t was appreciated. I added some lubrication to the area. I then returned the bowel to the intraperi toneal plane and my licensed occupational therapy assistant went between the legs to access the patient's rectum. At this point, r e-insufflation was obtained with the GelPort in place, 15 mmHg at this time. I grabbed and oriented the anvil at this point to ensure no twisting of the bowel occurred. I then placed it down into the pelvis without tension and it fell quite easily at this point. I then had my licensed occupational therapy assistant advance the E EA 29 stapler. This was a power Kaplan type EEA stapler advanced through the rectum after sequentia l dilatation with a 25 and 29 dilators. She advanced it into the rectum. This was advanced to the d istal aspect and the spike was then deployed in a end-to-side fashion through the muscular fibers whi ch were splayed out at this point just superior to the staple line. I then secured the anvil to this structure and the device was secured. I inspected the area 1 last time for hemostasis and to ensure no additional material was between the proposed staple and fire line. I then also ensured the bowel was in the proper orientation without twisting and the stapler was then fired at this point. A good anastomosis was achieved at this point. The donuts were removed on the back table and found to be i ntact for both proximal distal anastomotic donuts. I then had my licensed occupational therapy assistant placed a proctoscope and insufflate air while I compressed the distal bowel and submerged it under water. A leak test was per formed at this point without any evidence of leakage. No bubbles were appreciated and no additional hemostatic maneuvers were required. I then irrigated the abdomen copiously, suctioned out all efflue nt, and turned my attention to closure at this point. I then began by closing the two 12 mm trocars, which were the supraumbilical and right lower quadrant trocars with a Yanick-Kalin suture passer with an 0 Vicryl in an interrupted fashion with good approximation of tissues. I then removed the 5 mm trocar under direct vision using the GelPort. I then removed the GelPort and Venkata retractor, wo und protector for the left lower quadrant and grasped and elevated the fascia. I closed this under d irect vision using a #1 looped PDS suture with good apposition of the tissues. Deep dermal plane was then closed using interrupted 3-0 Vicryl sutures. All skin incisions were then copiously irrigated and closed with a 4-0 Monocryl in a running fashion. Dermabond placed over top. The patient tolerat ed the procedure well without complication, was transferred to PACU, and ultimately to the ICU in goo d condition. All counts were correct at the end of the case. TK/MODL Voice ID: [id number] Report ID: [id number]
[2022-11-27] MEDS: CEFOXITIN 1 GM in NA CHLORIDE 0.9% 50 ML IVPB SCH (19:53)
[2022-11-27] MEDS ORDERED: INSULIN -REGULAR HUMAN 50 UNIT/0.5 ML ML SQ SCH (21:00)
[2022-11-27] MEDS: HYDROMORPHONE/PCA 10 MG/50 ML SYR IV PRN (21:16)
[2022-11-28] MEDS: CEFOXITIN 1 GM in NA CHLORIDE 0.9% 50 ML IVPB SCH ×4 (00:54→18:34)
[2022-11-28] MEDS: INSULIN -REGULAR HUMAN 50 UNIT/0.5 ML ML SQ SCH ×4 (00:55→18:00)
[2022-11-28] MEDS: D5.45NS W/KCL 20MEQ 1,000 ML IV SCH ×3 (03:01→12:01)
[2022-11-28 05:15] LABS: Absolute Lymphocytes (CBC) 1.8 K/uL (0.7-4.9); Hematocrit 41.2 % (39.6-49.0); Lymphocytes % 15.2 % (15.3-44.8); MPV 8.1 fL (7.6-11.3); RBC Red Blood Cell Count 4.58 M/uL (4.33-5.43)
[2022-11-28 05:36] LABS: Phosphorus 4.5 mg/dL (2.5-4.9)
[2022-11-28 06:15] VITALS: BMI 27.1
[2022-11-28] MEDS: MUPIROCIN 2% OINT 22GM TUBE TOP SCH (08:00)
[2022-11-28] MEDS: ENOXAPARIN 40 MG/0.4 ML SQ SCH (08:00)
[2022-11-28] MEDS ORDERED: INFLUENZA VACCINE (for 6+ mo) 0.5 ML DOSE IMVAC ONE (08:00)
[2022-11-28] MEDS: PHENOL 1.4% ORAL SPRAY 180ML MM PRN (09:13)
[2022-11-28] MEDS: HYDROMORPHONE/PCA 10 MG/50 ML SYR IV PRN (17:30)
[2022-11-28] MEDS ORDERED: CEFOXITIN SODIUM 1 GM/VIAL ONE (18:32)
[2022-11-28] MEDS ORDERED: NA CHLORIDE 0.9% 50 ML ONE (18:35)
[2022-11-29] MEDS: D5.45NS W/KCL 20MEQ 1,000 ML IV SCH ×3 (01:11→17:17)
[2022-11-29] MEDS: MUPIROCIN 2% OINT 22GM TUBE TOP SCH ×2 (01:11→09:34)
[2022-11-29] MEDS: CEFOXITIN 1 GM in NA CHLORIDE 0.9% 50 ML IVPB SCH ×4 (01:12→17:19)
[2022-11-29] MEDS: PHENOL 1.4% ORAL SPRAY 180ML MM PRN (01:12)
[2022-11-29 04:04] LABS: Hematocrit 39.5 % (39.6-49.0); Lymphocytes % 25.8 % (15.3-44.8); MCV 89.7 fL (80-100); MPV 8.2 fL (7.6-11.3); RBC Red Blood Cell Count 4.41 M/uL (4.33-5.43)
[2022-11-29 04:23] LABS: Phosphorus 2.8 mg/dL (2.5-4.9); Potassium 3.6 mmol/L (3.5-5.1)
[2022-11-29] MEDS: INSULIN -REGULAR HUMAN 50 UNIT/0.5 ML ML SQ SCH ×4 (05:44→17:23)
[2022-11-29] MEDS ORDERED: KCL 20 MEQ/100 mL IVPB 20 MEQ/100 ML BAG IV SCH (09:00)
[2022-11-29] MEDS ORDERED: NA CHLORIDE 0.9% 100 ML ONE (09:10)
[2022-11-29] MEDS: ENOXAPARIN 40 MG/0.4 ML SQ SCH (09:28)
[2022-11-29] MEDS: HYDROMORPHONE/PCA 10 MG/50 ML SYR IV PRN (19:00)
[2022-11-29 20:02] VITALS: O2SAT 98
[2022-11-30] MEDS: D5.45NS W/KCL 20MEQ 1,000 ML IV SCH ×2 (00:23→09:31)
[2022-11-30] MEDS: CEFOXITIN 1 GM in NA CHLORIDE 0.9% 50 ML IVPB SCH ×3 (00:23→11:24)
[2022-11-30] MEDS: MUPIROCIN 2% OINT 22GM TUBE TOP SCH ×2 (00:28→09:31)
[2022-11-30 04:17] LABS: Absolute Lymphocytes (CBC) 1.8 K/uL (0.7-4.9); Hematocrit 38.7 % (39.6-49.0); Lymphocytes % 30.5 % (15.3-44.8); MCV 89.3 fL (80-100); RBC Red Blood Cell Count 4.33 M/uL (4.33-5.43)
[2022-11-30 04:30] LABS: Phosphorus 3.9 mg/dL (2.5-4.9); Potassium 3.7 mmol/L (3.5-5.1)
[2022-11-30] MEDS: INSULIN -REGULAR HUMAN 50 UNIT/0.5 ML ML SQ SCH ×3 (06:00→12:00)
[2022-11-30] MEDS ORDERED: KCL 20 MEQ/100 mL IVPB 20 MEQ/100 ML BAG IV ONE (09:00)
[2022-11-30] MEDS: ENOXAPARIN 40 MG/0.4 ML SQ SCH (09:30)
[2022-11-30] MEDS ORDERED: HYDROCODONE/APAP 7.5/325 MG TAB PO PRN (10:42)
[2022-11-30] MEDS ORDERED: D5.45NS W/KCL 20MEQ 1,000 ML IV SCH (10:44)
[2022-11-30 17:25] VITALS: BP 127/72; TEMP 98.1
== END 2022-11-30 17:30 | disposition home or self-care (01) | DRG 331 ==
LOC: OR 08:28 → 3RD-ICU 16:55 → 4TH 11-28 13:09
PROVIDERS: ADMIT Surgery; ATTEND Surgery
PROC: 0DBN4ZZ Excision of Sigmoid Colon, Percutaneous Endoscopic Approach (ICD-10-PCS; principal; 2022-11-27 10:15)
DX: K57.20 Diverticulitis of large intestine with perforation and abscess without bleeding (principal); K21.9 Gastro-esophageal reflux disease without esophagitis; Z90.3 Acquired absence of stomach [part of]; Z79.899 Other long term (current) drug therapy; Z20.822 Contact with and (suspected) exposure to COVID-19
CPT/HCPCS: 36415; 74018; 80048; 82947; 83735; 84100; 85025; 86850; 86900; 86901; 88304; 88307; 93005; 94010; 94760; 97116; 97161; 97530; A4216; J0171; J0690; J0694; J1100; J1170; J1650; J2001; J2250; J2405; J2704; J2710; J3010; J3480; J7120; U0003